=== PATIENT | male | born 1970 | race Two or more races ===

== ENCOUNTER 2020-09-01 07:22 | Emergency (ER) | payer OTHER ==
[~2020-09-01] VITALS: Ht 185.4 cm; Wt 83.9 kg
[2020-09-01 07:38] VITALS: BP 133/79
[2020-09-01] MEDS ORDERED: SULF1TAB48 PO (08:03)
[2020-09-01] MEDS ORDERED: METF-881 PO (08:03)
--- NOTE | 2020-09-01 08:36 | NUR ---
Patient discharged to home in stable condition. Written and verbal after care instructions given. Patient verbalizes understanding of instruction.
== END 2020-09-01 08:38 | disposition home or self-care (01) ==
LOC: ER 07:22
DX: L03.116 Cellulitis of left lower limb (principal); E11.9 Type 2 diabetes mellitus without complications; Z79.84 Long term (current) use of oral hypoglycemic drugs; Z79.899 Other long term (current) drug therapy
CPT/HCPCS: 82962-TC